=== PATIENT | male | born 1995 | race Caucasian/White ===

== ENCOUNTER 2020-12-22 11:33 | Day surgery (SDC) | payer OTHER ==
[2020-12-21 16:19] VITALS: BMI 21.1
[2020-12-22] MEDS ORDERED: BUPIVACAINE HCL/PF 0.25% (2.5MG/ML) 10 ML VIAL ONE (14:28)
[2020-12-22] MEDS ORDERED: LIDOCAINE HCL 2% (20ML MULTI-DOSE VIAL) ONE (14:28)
[2020-12-22] MEDS ORDERED: PROPOFOL 20 ML ONE ×2 (14:39→14:51)
[2020-12-22] MEDS ORDERED: MIDAZOLAM HCL 2 MG/2 ML SINGLE DOSE VIAL ONE (14:39)
[2020-12-22] MEDS ORDERED: LIDOCAINE HCL/PF 2% SDV 5ML VIAL ONE (14:42)
[2020-12-22] MEDS ORDERED: KETOROLAC TROMETHAMINE 30 MG/1 ML VIAL ONE (14:46)
[2020-12-22] MEDS ORDERED: AMPICILLIN NA/SULBACTAM NA 1.5 GM VIAL ONE (14:50)
[2020-12-22] MEDS ORDERED: SODIUM CHLORIDE 0.9% P/F 10 ML VIAL IJ ONE (14:50)
[2020-12-22] MEDS ORDERED: LIDOCAINE HCL 2% (50ML VIAL) INF ONE (14:54)
[2020-12-22 15:29] VITALS: TEMP 98
[2020-12-22 15:53] VITALS: BP 126/85; PULSE 98
== END 2020-12-22 15:50 | disposition home or self-care (01) ==
LOC: FASU 11:33
PROVIDERS: ATTEND Orthopaedic Surgery Hand Surgery
PROC: 0J9J0ZZ Drainage of Right Hand Subcutaneous Tissue and Fascia, Open Approach (ICD-10-PCS; principal; 2020-12-22 14:54)
DX: L03.011 Cellulitis of right finger (principal)
CPT/HCPCS: 87070; 87186; 87205